=== PATIENT | female | born 1990 | race Hispanic/Latino ===

== ENCOUNTER 2016-08-23 14:32 | Emergency (ER) | payer SELFPAY ==
[2016-08-23 15:54] LABS: Basophils % (Auto) 0.5 % (0.0-1.8); Eosinophils % (Auto) 0.6 % (0.0-4.3); Hemoglobin 14.9 gm/dl (10.1-14.3); Mean Corpuscular HGB Conc 34 % (30-34); Mean Corpuscular Hemoglobin 30 pg (28-32); Mean Corpuscular Volume 88 fl (79-97); Platelet Count 288 K/mm3 (140-440)
[2016-08-23 16:13] LABS: Anion Gap 18 mmol/L; Blood Urea Nitrogen 13 mg/dL (7-17); Calcium 9.5 mg/dL (8.4-10.2); Carbon Dioxide 25 mmol/L (22-30); Chloride 98.6 mmol/L (98-107); Glucose 99 mg/dL (65-100); Potassium 3.8 mmol/L (3.6-5.0); Sodium 138 mmol/L (137-145)
[2016-08-23] MEDS ORDERED: NACL 0.9% 1000 ML 1,000 ML IV ONE (16:14)
[2016-08-23] MEDS ORDERED: LOPRESSOR IV ONE ×2 (16:14→17:10)
--- NOTE | 2016-08-23 18:33 | Emergency Department Report ---
HPI - General Chief Complaint: Arrhythmia/Palpitations Time Seen by Provider: 08/23/16 15:40 - HPI HPI: This is a 26-year-old female who presents to the emergency department , driven in by friends, from work with a complaint of palpitations and tachycardia. The patient says that she got up from sitting and turned to her side and all of a sudden felt the palpitations began. She has a history of this one time previously back in January and was told that she had SVT. She denies any chest pain, nausea, vomiting, fever, back pain or shortness of breath. She has not taken anything for symptoms prior to presentation. She denies any other past medical history. She denies any tobacco or illicit drug use or abuse. No recent travel or sick contacts at home. ED Past Medical Hx - Past Medical History Additional medical history: HERPES. SVT - Surgical History Additional Surgical History: ABORTIONS X 3. MISCARRIAGE X 1 - Social History Smoking Status: Never Smoker Substance Use Type: Alcohol, Marijuana - Medications Home Medications: Home Medications Medication Instructions Recorded Confirmed Last Taken Type Cetirizine HCl [ZyrTEC] 10 mg PO QDAY 08/23/16 08/23/16 08/23/16 08:00 History valACYclovir [Valtrex] 500 mg PO QDAY PRN 08/23/16 08/23/16 Unknown History ED Review of Systems ROS: Stated complaint: ELEVATED HEART RATE Other details as noted in HPI Comment: All other systems reviewed and negative Constitutional: denies: chills, fever Eyes: denies: eye pain, eye discharge, vision change ENT: denies: ear pain, throat pain Respiratory: denies: cough, shortness of breath, wheezing Cardiovascular: palpitations. denies: chest pain Gastrointestinal: denies: abdominal pain, nausea, diarrhea Genitourinary: denies: urgency, dysuria, discharge Musculoskeletal: denies: back pain, joint swelling, arthralgia Skin: denies: rash, lesions Neurological: denies: headache, weakness, paresthesias Physical Exam - Physical Exam Vital Signs: Vital Signs 08/23/16 08/23/16 08/23/16 15:22 17:13 17:42 Temperature 98.4 F Pulse Rate 130 H 88 Respiratory 19 16 Rate Blood Pressure 122/81 112/77 O2 Sat by Pulse 100 99 Oximetry Physical Exam: GENERAL: The patient is well-developed well-nourished. HEENT: Normocephalic. Atraumatic. Extraocular motions are intact. Patient has moist mucous membranes. Pupils equal reactive to light bilaterally. NECK: Supple. Trachea is midline. CHEST/LUNGS: Clear to auscultation. There is no respiratory distress noted. HEART/CARDIOVASCULAR: Regular. There is moderate tachycardia. There is no gallop rub or murmur. ABDOMEN: Abdomen is soft, nontender. Patient has normal bowel sounds. There is no abdominal distention. SKIN: Skin is warm and dry. NEURO: The patient is awake, alert, and oriented. The patient is cooperative. The patient has no focal neurologic deficits. The patient has normal speech. Cranial nerves II through XII grossly intact. MUSCULOSKELETAL: There is no tenderness or deformity. There is no limitation range of motion. There is no evidence of acute injury. ED Course Vital Signs 08/23/16 08/23/16 08/23/16 15:22 17:13 17:42 Temperature 98.4 F Pulse Rate 130 H 88 Respiratory 19 16 Rate Blood Pressure 122/81 112/77 O2 Sat by Pulse 100 99 Oximetry ED Medical Decision Making - Lab Data Result diagrams: 08/23/16 15:37 08/23/16 15:37 - EKG Data -: EKG Interpreted by Me - EKG Data When compared to previous EKG there are: previous EKG unavailable Interpretation: other (supraventricular tachycardia, right axis deviation, rate of 131 bpm, incomplete right bundle branch block) - Medical Decision Making 26-year-old female presents the emergency department with some palpitations and tachycardia and EKG shows SVT, which the patient has a history of in the past. She does not appear in any distress. Patient's labs do not show any signs of infection, electrolyte abnormalities, renal insufficiency, glucose abnormalities. She has a negative troponin and d-dimer. She has normal thyroid function. She was given some IV fluid and one dose of 2.5 mg Lopressor. She was reevaluated multiple times for multiple hours and remains stable. Her heart rate is stabilized. When she gets up from the bed, the heart rate temporarily rise but then does come back on its own. Patient appears safe for discharge home at this time. She'll be given referrals for cardiology. She's been encouraged to stay away from any tobacco, illicit drugs , caffeinated products and to return to the ER with any worsening of her symptoms or any acute distress. - Differential Diagnosis SVT, PE, IN, hyperthyroidism Critical Care Time: No Critical care attestation.: If time is entered above; I have spent that time in minutes in the direct care of this critically ill patient, excluding procedure time. ED Disposition Clinical Impression: SVT (supraventricular tachycardia), Palpitations Disposition: DISCHARGED TO HOME OR SELFCARE Is pt being admited?: No Condition: Good Instructions: Palpitations (ED), Supraventricular Tachycardia (ED) Additional Instructions: Please follow-up with a primary care doctor if possible the next few days. I have given you a referral for a local women's studies lecturer, Dr. Catalan, to follow-up regarding or palpitations and SVT. Try to stay away from any alcohol, illicit drugs or caffeinated products. Return to the emergency department with any return of her symptoms or any acute distress. Referrals: PRIMARY MD CHARLEEN [Primary Care Provider] - 3-5 Days DAKOTA CATALAN MD [Staff Physician] - 3-5 Days [facility] [Outside] - 3-5 Days Forms: Work/School Release Form(ED) Time of Disposition: 18:34
[2016-08-23 19:09] VITALS: BP 122/75
== END 2016-08-23 18:40 | disposition home or self-care (01) ==
LOC: ED 14:32
DX: I47.1 Supraventricular tachycardia (principal); R00.2 Palpitations; F12.10 Cannabis abuse, uncomplicated
CPT/HCPCS: 36415; 80048; 84443; 84484; 85025; 85379; 93005; 93010; 96361; 96374; 99284; J7030